=== PATIENT | male | born 1975 | race African-American/Black ===

== ENCOUNTER 2017-01-15 09:36 | Emergency (ER) | payer SELFPAY ==
[~2017-01-15] VITALS: Ht 175.3 cm; Wt 85.5 kg
[2017-01-15 09:37] VITALS: BP 142/75; PULSE 70; RESP 20; TEMP 98; O2SAT 97
[2017-01-15] MEDS ORDERED: SODIUM CHLORIDE 0.9% FLUSH 10 ML FLUSH IV FLUSH PRN (10:15)
--- NOTE | 2017-01-15 10:23 | PD ---
HPI . Weakness and fatigue Chief Complaint: General Weakness Time Seen by Provider: 10:13 Travel History International Travel<30 days: No Contact w/Intl Traveler<30days: No Traveled to known affect area: No History of Present Illness HPI Patient presents complaining with generalized weakness and fatigue for the last 3 weeks. He reports poor appetite. He states that he's been working long hours. He states that he slept through his alarm clock this morning. He subsequently decided that it was time to get checked out. Patient is also complaining with hot flashes, dizziness, nausea, sore throat, nasal congestion, loose stools (2 per day) and mildly decreased urine output. [id number]: Generalized weakness DURATION: 3 weeks TIMING: Continuous CONTEXT: Working long hours MODIFYING FACTORS: No noted exacerbating or relieving factors ASSOCIATED SYMPTOMS: Hot flashes, dizziness, nausea, sore throat, nasal congestion, loose stools and decreased urinary output PFSH Past Medical History Hx Anticoagulant Therapy: No Cardiovascular Problems: No Chemotherapy: No Cerebrovascular Accident: No Diabetes: No Diminished Hearing: No Respiratory: No Immunizations Current: No Tetanus Vaccination: < 5 Years Past Surgical History Hysterectomy: No Social History Alcohol Use: Yes (TWICE A WEEK) Tobacco Use: No Substance Use: No Allergies-Medications (Allergen,Severity, Reaction): Coded Allergies: No Known Allergies (Verified , 01/15/17) Reported Meds & Prescriptions Reported Meds & Active Scripts Active No Active Prescriptions or Reported Medications Review of Systems Except as stated in HPI: all other systems reviewed are Neg General / Constitutional: Positive: Other, No: Fever, Chills Eyes: No: Drainage (weakness and fatigue), Redness HENT: Positive: Sore Throat, Congestion, No: Rhinorrhea, Earache Cardiovascular: No: Chest Pain or Discomfort Respiratory: No: Cough, Shortness of Breath Gastrointestinal: Positive: Diarrhea, Loss of Appetite, No: Nausea, Vomiting, Abdominal Pain Genitourinary: Positive: Decreased Urinary Output, No: Urgency, Frequency, Dysuria, Nocturia Musculoskeletal: Positive: Weakness Skin: No Rash Neurologic: Positive: Weakness, No: Focal Abnormalities Physical Exam Narrative GENERAL: Healthy-appearing young man in no acute distress. SKIN: Warm and dry. HEAD: Atraumatic. Normocephalic. EYES: Pupils equal and round. ENT: No nasal bleeding or discharge. Mucous membranes pink and moist. Oropharynx has no erythema, exudate, tonsillar enlargement, edema. NECK: Trachea midline. Neck is supple. No cervical lymphadenopathy. CARDIOVASCULAR: Regular rate and rhythm. Heart sounds are normal. RESPIRATORY: No accessory muscle use. Lungs are clear with full air movement throughout. GASTROINTESTINAL: Abdomen soft. Normal bowel sounds. Nondistended. Mild epigastric tenderness. No right upper quadrant tenderness. MUSCULOSKELETAL: No obvious deformities. No edema. NEUROLOGICAL: Awake and alert. No obvious cranial nerve deficits. Motor grossly within normal limits. Normal speech. PSYCHIATRIC: Appropriate mood and affect; insight and judgment normal. Data Data Last Documented VS Vital Signs Date Time Temp Pulse Resp B/P Pulse Ox O2 Delivery O2 Flow Rate FiO2 01/15/17 11:11 16 99 Room Air 01/15/17 09:37 98.0 70 142/75 Orders Complete Blood Count With Diff (01/15/17 10:13) Comprehensive Metabolic Panel (01/15/17 10:13) Lipase (01/15/17 10:13) Urinalysis - C+S If Indicated (01/15/17 10:13) Iv Access Insert/Monitor (01/15/17 10:13) Ecg Monitoring (01/15/17 10:13) Oximetry (01/15/17 10:13) Sodium Chloride 0.9% Flush (Ns Flush) (01/15/17 10:15) Hepatitis Profile (01/15/17 11:45) Labs Laboratory Tests Test 01/15/17 01/15/17 10:45 10:55 White Blood Count 4.4 TH/MM3 Red Blood Count 4.39 MIL/MM3 Hemoglobin 14.2 GM/DL Hematocrit 41.8 % Mean Corpuscular Volume 95.4 FL Mean Corpuscular Hemoglobin 32.4 PG Mean Corpuscular Hemoglobin 34.0 % Concent Red Cell Distribution Width 12.8 % Platelet Count 252 TH/MM3 Mean Platelet Volume 8.3 FL Neutrophils (%) (Auto) 44.6 % Lymphocytes (%) (Auto) 40.1 % Monocytes (%) (Auto) 12.9 % Eosinophils (%) (Auto) 1.9 % Basophils (%) (Auto) 0.5 % Neutrophils # (Auto) 2.0 TH/MM3 Lymphocytes # (Auto) 1.8 TH/MM3 Monocytes # (Auto) 0.6 TH/MM3 Eosinophils # (Auto) 0.1 TH/MM3 Basophils # (Auto) 0.0 TH/MM3 CBC Comment DIFF FINAL Differential Comment Sodium Level 138 MEQ/L Potassium Level 4.2 MEQ/L Chloride Level 105 MEQ/L Carbon Dioxide Level 24.6 MEQ/L Anion Gap 8 MEQ/L Blood Urea Nitrogen 12 MG/DL Creatinine 0.95 MG/DL Estimat Glomerular Filtration 107 ML/MIN Rate Random Glucose 94 MG/DL Calcium Level 8.4 MG/DL Total Bilirubin 0.6 MG/DL Aspartate Amino Transf 278 U/L (AST/SGOT) Alanine Aminotransferase 592 U/L (ALT/SGPT) Alkaline Phosphatase 67 U/L Total Protein 7.3 GM/DL Albumin 3.6 GM/DL Lipase 170 U/L Urine Color LIGHT-YELLOW Urine Turbidity CLEAR Urine pH 6.5 Urine Specific [place] 1.006 Urine Protein NEG mg/dL Urine Glucose (UA) NEG mg/dL Urine Ketones NEG mg/dL Urine Occult Blood NEG Urine Nitrite NEG Urine Bilirubin NEG Urine Urobilinogen LESS THAN 2.0 MG/DL Urine Leukocyte Esterase NEG Urine WBC LESS THAN 1 /hpf Microscopic Urinalysis Comment CULT NOT INDICATED MDM Medical Decision Making Medical Screen Exam Complete: Yes Emergency Medical Condition: Yes Differential Diagnosis Differential diagnosis of weakness includes but is not limited to infection, CVA , electrolyte disturbance, renal failure, hypoglycemia, UTI, ACS, acute blood loss Narrative Course Patient presents with a 3 week history of weakness and fatigue associated with poor appetite. It is also associated with working long hours. CBC & BMP Diagram 01/15/17 10:45 LFTs are T bili 0.6, AST 278, ALT 592. Lipase is 170. I have added a hepatitis panel. Diagnosis Primary Impression: Hepatitis Additional Impression: Weakness Referrals: [facility] Patient Instructions: Fatigue (DC), General Instructions Additional Instructions: Follow-up with a primary care provider for further evaluation of elevated liver function studies. Scripts No Active Prescriptions or Reported Meds Disposition: 01 DISCHARGE HOME Condition: Stable Isabel Muñoz MD Jan 15, 2017 10:23
[2017-01-15 10:30] VITALS: RESP 16; O2SAT 99
[2017-01-15 11:04] LABS: BASOPHIL % 0.5 % (0.0-2.0); EOSINOPHIL # 0.1 TH/MM3 (0-0.4); EOSINOPHIL % 1.9 % (0.0-4.0); HEMATOCRIT 41.8 % (39.0-51.0); HEMO FLAGS DIFF FINAL; LYMPH % 40.1 % (9.0-44.0); LYMPHOCYTE # 1.8 TH/MM3 (1.0-4.8); MEAN CELL VOLUME 95.4 FL (80.0-100.0); MEAN CORPUSCULAR HEMOGLOBIN 32.4 PG (27.0-34.0); MONO % 12.9 % (0.0-8.0); NEUT % 44.6 % (16.0-70.0); PLATELET COUNT 252 TH/MM3 (150-450); RED BLOOD COUNT 4.39 MIL/MM3 (4.50-5.90); RED CELL DISTRIBUTION WIDTH 12.8 % (11.6-17.2); WHITE BLOOD COUNT 4.4 TH/MM3 (4.0-11.0)
[2017-01-15 11:05] LABS: BLOOD, URINE NEG (NEG); GLUCOSE,URINE NEG (NEG); KETONE, URINE NEG (NEG); NITRITE,URINE NEG (NEG); PH, URINE 6.5 (5.0-8.5); URINE COLOR LIGHT-YELLOW (YELLW/STRAW)
[2017-01-15 11:15] LABS: COMMENT (UR) CULT NOT INDICATED; CULTURE IF INDICATED CULT NOT INDICATED
[2017-01-15 11:43] LABS: ALKALINE PHOSPHATASE 67 U/L (45-117); ALT (GPT) 592 U/L (12-78); ANION GAP 8 MEQ/L (5-15); AST (GOT) 278 U/L (15-37); BICARBONATE 24.6 MEQ/L (21.0-32.0); BLOOD UREA NITROGEN 12 MG/DL (7-18); CHLORIDE 105 MEQ/L (98-107); GLOMERULAR FILTRATION RATE 107 ML/MIN (>89); POTASSIUM 4.2 MEQ/L (3.5-5.1); SODIUM (NA) 138 MEQ/L (136-145); TOTAL BILIRUBIN ADULT 0.6 MG/DL (0.2-1.0)
== END 2017-01-15 13:21 | disposition home or self-care (01) ==
LOC: NEPA 09:36
DX: K75.9 Inflammatory liver disease, unspecified (principal); R53.1 Weakness; R53.83 Other fatigue; R42 Dizziness and giddiness; R11.0 Nausea; R07.0 Pain in throat; R09.81 Nasal congestion; R19.7 Diarrhea, unspecified
CPT/HCPCS: 80053; 80074; 81001; 83690; 85025; 99284